=== PATIENT | female | born 1950 | race Caucasian/White ===

== ENCOUNTER 2017-07-02 12:41 | Emergency (ER) | payer OTHER ==
[~2017-07-02] VITALS: Ht 167.6 cm; Wt 101.3 kg
[~2017-07-02 12:41] MED LIST: ADVIL,NUPRIN,M200 MG PO; AMLODIPINE BESYL5 MG PO; ASPIR 8181 MG PO; ATORVASTATIN CA10 MG PO; DAILY MULTIPLE1 EACH PO; HYDROMORPHONE HC2 MG PO; LO-DOSE ASPIRIN81 M2 PO; LOSARTAN-HCTZ1 EAC1 PO; LOVASTATIN20 MG PO; METHOCARBAMOL500 MG PO; MOTRIN800 MG PO; OXYCODONE HCL5 MG PO; PERCOCET 5/31 TABLET PO
[2017-07-02 15:19] LABS: HEMATOCRIT 46.7 % (36.0-46.0); HEMOGLOBIN 15.7 G/DL (11.9-15.5); MCH 32.2 PG (29.0-34.0); MCHC 33.6 G/DL (30.0-36.0); MCV 95.9 FL (83-99); PLATELET COUNT 251 K/uL (156-360); RBC DIS.WIDTH-CV 13.9 % (11.8-14.6); RED BLOOD COUNT 4.87 M/uL (3.80-5.20); WHITE BLOOD COUNT 7.3 K/uL (4.1-10.2)
[2017-07-02 15:25] LABS: CHLORIDE 104 mEq/L (99-109); POTASSIUM 3.2 mEq/L (3.7-5.4); SODIUM 141 mEq/L (136-147)
[2017-07-02 15:27] LABS: GLUCOSE 157 mg/dL (70-99)
[2017-07-02 15:31] LABS: CREATININE 0.7 mg/dL (0.6-1.3); GFR ESTIMATE (CALCULATED) > 59 mL/min/
[2017-07-02 15:32] LABS: UREA NITROGEN (BUN) 22 mg/dL (9-23)
[2017-07-02] MEDS ORDERED: LOSARTAN-HCTZ1 EAC1 PO (16:19)
[2017-07-02] MEDS ORDERED: PREDNISONE20 MG PO (16:26)
[2017-07-02 16:29] VITALS: BP 172/85
== END 2017-07-02 16:32 | disposition home or self-care (01) ==
LOC: EME 12:41
DX: M54.12 Radiculopathy, cervical region (principal); I10 Essential (primary) hypertension; Z91.14 Patient's other noncompliance with medication regimen; Z79.82 Long term (current) use of aspirin; F17.200 Nicotine dependence, unspecified, uncomplicated
CPT/HCPCS: 70450; 71046; 80048; 85027; 99281; 99284